=== PATIENT | male | born 1985 | race Two or more races ===

== ENCOUNTER 2017-05-09 12:51 | Emergency (ER) | payer SELFPAY ==
[~2017-05-09] VITALS: Ht 157.5 cm; Wt 83.9 kg
[2017-05-09 13:00] VITALS: BP 138/82
[2017-05-09] MEDS ORDERED: NKM (13:02)
[2017-05-09] MEDS ORDERED: AMOXICILLIN500 MG ORAL (14:08)
[2017-05-09 14:24] VITALS: BP 130/79
--- NOTE | 2017-05-09 15:01 | Diagnostic Imaging Report ---
Indication: Dyspnea Comparison: None A single view chest radiograph was obtained. Findings: Cardiomediastinal appearance is within normal limits for age. Pulmonary vascularity is appropriate. The diaphragmatic contour is smooth and costophrenic angles are sharp. No pleural effusions are identified. The bones are unremarkable. Impression: No acute findings
--- NOTE | 2017-05-09 15:13 | Emergency Room Report ---
History of Present Illness General Chief Complaint: Chest Pain Source: Patient Present Illness HPI 32-year-old male presents ED for evaluation. Patient states the last 3 days he' s been experiencing cough, congestion, sore throat. Notes pain with coughing. Pain is sharp, 5/10, midsternal, nonradiating. Denies fevers or chills. Denies shortness of breath. Denies cardiac history. Denies smoking or drug use. Denies sick contacts recent travel. No other aggravating or relieving factors. Denies any other associated symptoms Allergies: Coded Allergies: No Known Allergies (Unverified , 05/09/17) Patient History Past Medical History: none Past Surgical History: none Pertinent Family History: none Social History: Denies: smoking, alcohol use, drug use Immunizations: UTD Reviewed Nursing Documentation: PMH: Agreed, PSxH: Agreed Nursing Documentation-PMH Past Medical History: No Stated History Review of Systems All Other Systems: negative except mentioned in HPI Physical Exam Vital Signs Date Time Temp Pulse Resp B/P (MAP) Pulse Ox O2 Delivery O2 Flow Rate FiO2 05/09/17 12:59 97.7 69 24 133/91 97 Room Air Sp02 EP Interpretation: reviewed, normal General Appearance: no apparent distress, alert, GCS 15, non-toxic Head: normocephalic, atraumatic Eyes: bilateral eye normal inspection, bilateral eye PERRL ENT: hearing grossly normal, no angioedema, normal voice, pharyngeal erythema, other - poor light reflex L TM Neck: full range of motion, supple/symm/no masses Respiratory: chest non-tender, lungs clear, normal breath sounds, speaking full sentences Cardiovascular #1: regular rate, rhythm, no edema Cardiovascular #2: 2+ carotid (R), 2+ carotid (L), 2+ radial (R), 2+ radial (L) , 2+ dorsalis pedis (R), 2+ dorsalis pedis (L) Gastrointestinal: normal bowel sounds, non tender, soft, non-distended, no guarding, no rebound Rectal: deferred Genitourinary: normal inspection, no CVA tenderness Musculoskeletal: back normal, gait/station normal, normal range of motion, non- tender Neurologic: alert, oriented x3, responsive, motor strength/tone normal, sensory intact, speech normal Psychiatric: judgement/insight normal, memory normal, mood/affect normal, no suicidal/homicidal ideation Reflexes: 3+ bicep (R), 3+ bicep (L), 3+ tricep (R), 3+ tricep (L), 3+ knee (R) , 3+ knee (L) Skin: normal color, no rash, warm/dry, well hydrated Lymphatic: no adenopathy Medical Decision Making Diagnostic Impression: Primary Impression: Pharyngitis Qualified Codes: J02.9 - Acute pharyngitis, unspecified Additional Impression: Chest pain Qualified Codes: R07.9 - Chest pain, unspecified ER Course Hospital Course 32-year-old male presents to ED complaining of sore throat + cough + congestion Differential diagnoses include: URI, pharyngitis, otitis media Clinical course Patient placed on stretcher. After initial history, physical exam reveals an obese male in no acute distress. L TM poor light reflex. There is pharyngeal erythema w/o tonsillar exudates. No lymphadenopathy. Clinical findings consistent with pharyngitis. EKG - NSR, no acute changes interpreted by me CXR - unremarkable Patient has no cardiac risk factors. Stable vitals. I believe the pain is muscular from the prolonged coughing Diagnosis - pharyngitis, chest pain Stable and discharged home with prescriptions for amoxicillin. Instructed to followup with PMD. return to ED if symptoms recur or worsen EKG Diagnostic Results Rate: normal Rhythm: NSR ST Segments: no acute changes ASA given to the pt in ED: No Rhythm Strip Diag. Results EP Interpretation: yes Rhythm: NSR, no PVC's, no ectopy Chest X-Ray Diagnostic Results Chest X-Ray Diagnostic Results : Chest X-Ray Ordered: Yes # of Views/Limited/Complete: 1 View Indication: Chest Pain EP Interpretation: Yes Interpretation: no consolidation, no effusion, no pneumothorax, no acute cardiopulmonary disease Impression: No acute disease Interpreting ER Provider: Electronically signed by Ross Yates MD Last Vital Signs Date Time Temp Pulse Resp B/P (MAP) Pulse Ox O2 Delivery O2 Flow Rate FiO2 05/09/17 14:24 68 19 130/79 98 Room Air 05/09/17 13:00 97.8 Status: improved Disposition: HOME, SELF-CARE Condition: Stable Scripts Amoxicillin* (AMOXIL*) 500 Mg Capsule 500 MG ORAL THREE TIMES A DAY for 10 Days, #30 CAP Prov: ROSS YATES M.D. 05/09/17 Patient Instructions: Nonspecific Chest Pain ROSS YATES M.D. May 09, 2017 15:13
== END 2017-05-09 14:30 | disposition home or self-care (01) ==
LOC: EMR 13:43
DX: J02.9 Acute pharyngitis, unspecified (principal); R07.9 Chest pain, unspecified
CPT/HCPCS: 71010; 93005; 99283

== ENCOUNTER 2017-05-12 11:58 | Emergency (ER) | payer SELFPAY ==
[~2017-05-12] VITALS: Ht 162.6 cm; Wt 84.4 kg
[~2017-05-12 11:58] MED LIST: AMOXICILLIN500 MG ORAL; NKM
[2017-05-12] MEDS ORDERED: PREDNISONE50 MG ORAL (12:40)
[2017-05-12] MEDS ORDERED: FLONASE ALLERG9.9 ML NS (12:40)
[2017-05-12] MEDS ORDERED: VIGAMOX1 DROP RIGHT EYE (12:40)
[2017-05-12] MEDS ORDERED: LORATADINE10 M2 PO (12:40)
[2017-05-12] MEDS ORDERED: AUGMENTIN 875-1 EAC1 ORAL (12:40)
--- NOTE | 2017-05-12 12:40 | Emergency Room Report ---
History of Present Illness General Chief Complaint: Eye Problems Source: Patient Present Illness HPI 32-year-old male c/o ear pain x 1.5 weeks and right eye discharge x today. States that he was diagnosed with ear infection 4 days ago and was started on amoxicillin 500mg which he is taking with good compliance without adverse effects and without any improvement of his symptoms. States that his ear pain and sinus congestion remains unchanged and began approximately 8-10 days ago and is not taking any other medications for his symptoms (such as H1 blockers or ibuprofen). Associated symptoms include rhinorrhea, nasal congestion, cough due to postnasal drip, sinus pain and pressure, and bilateral ear pain. States that this morning he had woken up with his right eye glued shut. States that he had he is a warm red to widely mucous so he can open up his eye and has had purulent drainage from his right eye since. States that he has no provoking factors for his symptoms. Denies any eye pain or decreased vision. Denies using contact lenses or foreign body in eye. Denies any current n/v/f/c/d, abd pain, back pain, neck pain, photophobia, phonophobia, CP, SOB or headache. Allergies: Coded Allergies: No Known Allergies (Unverified , 05/09/17) Patient History Past Medical History: see triage record Past Surgical History: none Pertinent Family History: none Immunizations: UTD Reviewed Nursing Documentation: PMH: Agreed, PSxH: Agreed Nursing Documentation-PM Past Medical History: No Stated History Review of Systems All Other Systems: negative except mentioned in HPI Physical Exam Vital Signs Date Time Temp Pulse Resp B/P (MAP) Pulse Ox O2 Delivery O2 Flow Rate FiO2 05/12/17 12:10 97.7 65 18 140/79 98 Room Air Sp02 EP Interpretation: reviewed, normal General Appearance: no apparent distress, alert, GCS 15, non-toxic Head: normocephalic, atraumatic Eyes: right eye Scleral Injection, right eye other - discharge right eye, bilateral eye PERRL, bilateral eye EOMI ENT: hearing grossly normal, normal pharynx, no angioedema, normal voice, uvula midline, nasal congestion, pharyngeal erythema, other - bilateral TMs are red and bulging. + bilateral maxillary sinus tenderness Neck: full range of motion, supple/symm/no masses Respiratory: chest non-tender, lungs clear, normal breath sounds, speaking full sentences Cardiovascular #1: regular rate, rhythm, no edema Musculoskeletal: gait/station normal Neurologic: alert, oriented x3, responsive, motor strength/tone normal, sensory intact, speech normal Skin: normal color, no rash, warm/dry, well hydrated Lymphatic: no adenopathy Medical Decision Making PA Attestation Dr. Suggs is my supervising physician with whom patient management has been discussed with. Diagnostic Impression: Primary Impression: [place] eye disease of right eye Additional Impressions: Sinusitis, acute Qualified Codes: J01.00 - Acute maxillary sinusitis, unspecified Otitis media Qualified Codes: H65.113 - Acute and subacute allergic otitis media (mucoid) ( sanguinous) (serous), bilateral ER Course Pt. presents to the ED c/o Ear pain and right eye drainage Ddx considered but are not limited to bacterial / allergic / viral conjunctivitis, glaucoma, sinusitis, allergies, AOM, AOE, strep throat, meningitis, pneumonia Vital signs: are WNL, pt. is afebrile H&PE are most consistent with Sinusitis with AOM and pink eye ORDERS: none required at this time, the diagnosis is clinical ED INTERVENTIONS: none required at this time. DISCHARGE: At this time pt. is stable for d/c to home. Will provide printed patient care instructions, and any necessary prescriptions. Care plan and follow up instructions have been discussed with the patient prior to discharge. Last Vital Signs Date Time Temp Pulse Resp B/P (MAP) Pulse Ox O2 Delivery O2 Flow Rate FiO2 05/12/17 12:10 97.7 65 18 140/79 98 Room Air Disposition: HOME, SELF-CARE Condition: Stable Scripts Moxifloxacin HCl (Vigamox) 3 Ml Drops 1 DROP RIGHT EYE THREE TIMES A DAY for 7 Days, #3 ML 0 Refills Prov: SABRY,TAMEEM P.A. 05/12/17 Fluticasone Propionate (Flonase Allergy Relief) 9.9 Ml [place].susp 2 SPRAYS NS DAILY for 7 Days, #10 ML Prov: SABRY,TAMEEM P.A. 05/12/17 Prednisone* (PREDNISONE*) 50 Mg Tablet 50 MG ORAL DAILY, #5 TAB 0 Refills Prov: SABRY,TAMEEM P.A. 05/12/17 Loratadine (LORATADINE) 10 Mg Tablet 10 MG PO DAILY for 14 Days, #14 TAB Prov: AISHWARYAJOSE ALFREDODANK Lam[place].A. 05/12/17 Amoxicillin/Potassium Clav 875-125* (AUGMENTIN 875-125 TABLET*) 1 Each Tablet 1 TAB ORAL TWICE A DAY for 10 Days, #20 TAB Prov: AISHWARYAJOSE ALFREDODANK P.A. 05/12/17 Patient Instructions: Bacterial Conjunctivitis, [id number], Sinusitis, Adult Additional Instructions: Take medication as directed. Put warm, wet pressure on your eyes Wet a clean wash cloth with warm (not scalding hot) water and put it over your eyes. When the wash cloth cools, reheat it with warm water and put it back over your eyes. Repeat these steps for 5 minutes, 2 to 4 times a day. Gently rub your eyelids Do this right after putting warm, wet pressure on your eyes. Use the washcloth or a clean fingertip to gently rub your eyelid in small circles. Wash your eyelids Use plain warm water or warm water with a drop of baby shampoo on a clean washcloth, gauze pad, or cotton swab. Gently clean any crusty material off the eyelashes and eyelids. Do not rub hard or you can cause more irritation. You can also use [id number] eyelid scrubs and pads. Advised patient to go to the ER immediately if the swelling and heat extend beyond the eye lid, if sxs worsen, vision changes, eye pain, or if they do not improve in the next 3-5 days. Take medication as directed. Patient advised that most of the time, symptoms start to improve in 7 to 10 days. Patient should return to clinic if their symptoms last more than 10 days, or if your symptoms get better at first but then get worse. Patient instructed to take an [id number] pain reliever to reduce the pain, and to rinse your nose and sinuses with salt water a few times a day. Patient advised to NOT take an antihistamine for sinusitis. Go to the ER if you experience any: fever higher than 102.5, sudden and severe pain in the face and head, trouble seeing or seeing double, trouble thinking clearly, swelling or redness around one or both eyes, or trouble breathing or a stiff neck. DANK DUMONT May 12, 2017 12:40
[2017-05-12 12:54] VITALS: BP 140/79
[2017-05-12 12:55] VITALS: BP 140/79
== END 2017-05-12 12:55 | disposition home or self-care (01) ==
LOC: EMR 12:35
DX: H10.021 Other mucopurulent conjunctivitis, right eye (principal); J01.90 Acute sinusitis, unspecified; H66.93 Otitis media, unspecified, bilateral
CPT/HCPCS: 99284

== ENCOUNTER 2020-04-16 13:44 | Emergency (ER) | payer MEDICAID ==
[~2020-04-16] VITALS: Ht 157.5 cm; Wt 83.9 kg
[~2020-04-16 13:44] MED LIST changes: +AUGMENTIN 875-1 EAC1 ORAL; +FLONASE ALLERG9.9 ML NS; +LORATADINE10 M2 PO; +PREDNISONE50 MG ORAL; +VIGAMOX1 DROP RIGHT EYE
[2020-04-16 14:25] VITALS: BP 143/82
[2020-04-16] MEDS ORDERED: DiphenhydrAMINE 50mg/ml Inj IM ONE (14:30)
--- NOTE | 2020-04-16 14:35 | Emergency Room Report ---
History of Present Illness General Chief Complaint: Allergic Reaction Source: Patient Present Illness HPI 35 YO male presents to the ED C/O nasal congestion bilaterally with swollen itchy eyes x3 days. Patient also reports 7 out of 10 severity pain and fullness in the right ear. 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 He reports mild itchy rash to the posterior neck area. Pt. denies fevers, chills or swollen tender lymph nodes. Denies lesions/rashes elsewhere on the body. Denies new medications or body washes or creams. Denies swelling of the lips, tongue , throat or airway. Denies wheezing, or shortness of breath. Denies recent travel, recent illness or ill contacts. Denies blisters, oral lesions, or sloughing of the skin. He denies fb sensation in eyes. He denies ear d/c. He denies eye discharge. He reports he took 25mg Benadryl 2 hours [employer]. He reports he is rx'd Zyrtec and supposed to be taking it. Allergies: Coded Allergies: No Known Allergies (Unverified , 05/09/17) COVID-19 Screening Contact w/high risk pt: No Experienced COVID-19 symptoms?: No COVID-19 Testing performed [employer]: No Patient History Past Medical History: see triage record Past Surgical History: none Pertinent Family History: none Reviewed Nursing Documentation: PMH: Agreed; PSxH: Agreed Nursing Documentation-PMH Hx Diabetes: Yes Review of Systems All Other Systems: negative except mentioned in HPI Physical Exam Vital Signs Date Time Temp Pulse Resp B/P (MAP) Pulse Ox O2 Delivery O2 Flow Rate FiO2 04/16/20 14:13 98.4 62 19 143/82 (102) 98 Room Air Sp02 EP Interpretation: reviewed, normal General Appearance: no apparent distress, alert, GCS 15, non-toxic Head: normocephalic, atraumatic Eyes: bilateral eye normal inspection, bilateral eye PERRL, bilateral eye EOMI , bilateral eye other - diffuse bilateral lid swelling. no conjunctival erythema , no d/c no increased lacrimation ENT: hearing grossly normal, normal pharynx, normal voice, TMs + canals normal , uvula midline, moist mucus membranes, nasal congestion - bilaterally. nares are mildly patent. Neck: full range of motion, no meningismus, other - no stridor Respiratory: chest non-tender, lungs clear, normal breath sounds, no respiratory distress, no accessory muscle use, no wheezing, speaking full sentences Cardiovascular #1: regular rate, rhythm Musculoskeletal: back normal, normal range of motion, gait/station normal, non- tender Neurologic: alert, motor strength/tone normal, oriented x3, sensory intact, responsive, speech normal Psychiatric: judgement/insight normal Skin: normal color, rash - erythema to the posterior neck, no-obvious urticaria. no blisters or vesicles Lymphatic: no adenopathy Medical Decision Making PA Attestation Dr. Kenney is my supervising Physician whom patient management has been discussed with. Diagnostic Impression: Primary Impression: Allergic reaction Qualified Codes: T78.40XA - Allergy, unspecified, initial encounter ER Course 35 YO male presents to the ED C/O nasal congestion bilaterally with swollen itchy eyes x3 days. Patient also reports 7 out of 10 severity pain and fullness in the right ear. 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 He reports mild itchy rash to the posterior neck area. Pt. denies fevers, chills or swollen tender lymph nodes. Denies lesions/rashes elsewhere on the body. Denies new medications or body washes or creams. Denies swelling of the lips, tongue , throat or airway. Denies wheezing, or shortness of breath. Denies recent travel, recent illness or ill contacts. Denies blisters, oral lesions, or sloughing of the skin. He denies fb sensation in eyes. He denies ear d/c. He denies eye discharge. He reports he took 25mg Benadryl 2 hours [employer]. He reports he is rx'd Zyrtec and supposed to be taking it. Pt. reports intermittently having severe runny nose. Ddx considered but are not limited to cellulitis, allergic reaction, angio edema , abscess, corneal abrasion, eye fb, sinusitis, rhinitis, OM/OE. Vital signs: are WNL, pt. is afebrile H&PE are most consistent with allergic rhinitis. No evidence of OM/OE on exam. Pt. nares are mildly patent. Normal pharynx. No LAD, no swelling of the lips or tongue. No evidence to suggest acute impending airway compromise or anaphylaxis. Not in resp. distress. ORDERS: none required at this time, the diagnosis is clinical ED INTERVENTIONS: -IM Benadryl -Prednisone PO DISCHARGE: At this time pt. is stable for d/c to home. Will provide printed patient care instructions, and any necessary prescriptions. Care plan and follow up instructions have been discussed with the patient prior to discharge. Last Vital Signs Date Time Temp Pulse Resp B/P (MAP) Pulse Ox O2 Delivery O2 Flow Rate FiO2 04/16/20 14:25 98.4 19 143/82 98 Room Air 04/16/20 14:25 62 Disposition: HOME, SELF-CARE Condition: Stable Scripts Diphenhydramine Hcl* (BENADRYL*) 25 Mg Capsule 50 MG ORAL Q6H PRN for Itching, #30 CAP Prov: Erin Venegas 04/16/20 Prednisone* (PREDNISONE*) 20 Mg Tablet 40 MG ORAL DAILY for 3 Days, #6 TAB Prov: Erin Venegas 04/16/20 Oxymetazoline HCl (Afrin) 15 Ml [place] 2 SPRAYS NASAL TWICE A DAY, #15 ML Prov: Erin Venegas 04/16/20 Referrals: NON PHYSICIAN (PCP) Patient Instructions: Allergies Additional Instructions: Take medications as directed. Do not drink alcohol, drive, or operate heavy machinery while taking Benadryl as this may cause drowsiness. Do not use AFRIN SPRAY for more than 3 consecutive days Follow up with a Primary Care Provider in 3-5 days, even if your symptoms have resolved. Return sooner to ED if new symptoms occur, or current symptoms become worse. - Please note that this Emergency Department Report was dictated using [employer] coach technology software, occasionally this can lead to erroneous entry secondary to interpretation by the dictation equipment. Erin Venegas Apr 16, 2020 14:35
[2020-04-16] MEDS ORDERED: BENADRYL25 MG ORAL (14:37)
[2020-04-16] MEDS ORDERED: PREDNISONE20 MG ORAL (14:37)
[2020-04-16] MEDS ORDERED: AFRIN NASAL SPR30 ML NASAL (14:37)
[2020-04-16 15:19] VITALS: BP 143/82
== END 2020-04-16 15:18 | disposition home or self-care (01) ==
LOC: EMR 14:15
DX: T78.40XA Allergy, unspecified, initial encounter (principal); X58.XXXA Exposure to other specified factors, initial encounter; Z91.013 Allergy to seafood; E11.9 Type 2 diabetes mellitus without complications
CPT/HCPCS: 96372; J1200; J7512; Z7502; 99283